=== PATIENT | female | born 1960 | race Caucasian/White ===

== ENCOUNTER 2016-04-02 17:43 | Emergency (ER) | payer MEDICARE, MEDICAID ==
[~2016-04-02] VITALS: Ht 157.5 cm; Wt 90.7 kg
[2016-04-02 18:14] VITALS: BP 149/85
--- NOTE | 2016-04-02 18:51 | PHYS DOC ---
Past Medical History Past Medical History: Depression, Hypertension, Stroke Additional Past Medical Histor: BRAIN ANEURYSM Past Surgical History: Cholecystectomy, Tonsillectomy Additional Information: LESS THAN A PACK A DAY Alcohol Use: None Drug Use: None Adult General Chief Complaint Chief Complaint: ANKLE PROBLEM HPI HPI Patient is a 55 year old female with history of hypertension stroke and depression who presents today with mild right medial ankle pain that began today after she stepped on a step and fell. Patient denies any loss of consciousness. Review of Systems Review of Systems Constitutional: Denies fever or chills [] Musculoskeletal: Left medial ankle pain Integument: Denies rash or skin lesions [] Neurologic: Denies headache, focal weakness or sensory changes [] Endocrine: Denies polyuria or polydipsia [] Allergies Allergies Allergies Coded Allergies Type Severity Reaction Last Updated Verified Penicillins Allergy Intermediate 04/02/16 Yes codeine Allergy Intermediate Itching 04/02/16 Yes Physical Exam Physical Exam Constitutional: Well developed, well nourished, no acute distress, non-toxic appearance. [] Skin: Warm, dry, no erythema, no rash. [] Back: No tenderness, no CVA tenderness. [] Extremities: Left ankle with small amount of soft tissue swelling on the lateral aspect, slight tenderness on palpation of the medial aspect of the ankle. Full range of motion to the right ankle. Patient able to flex and extend the right foot with no difficulties. +2 right pedal pulse. Cap refill less than 2 seconds the right lower extremity. Sensation intact to the right upper extremity. Neurologic: Alert and oriented X 3, normal motor function, normal sensory function, no focal deficits noted. [] Psychologic: Affect normal, judgement normal, mood normal. [] Current Patient Data Vital Signs Vital Signs Date Time Temp Pulse Resp B/P Pulse Ox O2 Delivery O2 Flow Rate FiO2 04/02/16 18:14 99.6 111 20 97 Room Air 99.6 EKG EKG [] Radiology/Procedures Radiology/Procedures [] Course & Med Decision Making Course & Med Decision Making Pertinent Labs and Imaging studies reviewed. (See chart for details) Patient is in the ED with right ankle pain after falling on it. Right ankle x- rays interpreted by Dr. Serrano are negative for any acute findings. Air cast applied to the right ankle by the ED RN, neurovascular exam done by me post-air cast application is normal, ice elevation encouraged. [id number] pain relievers. Follow-up with ortho in one week. Dragon Disclaimer Dragon Disclaimer This electronic medical record was generated, in whole or in part, using a voice recognition dictation system. Departure Departure Impression: Primary Impression: Ankle sprain Additional Impression: Fall down steps Disposition: 01 HOME, SELF-CARE Condition: STABLE Referrals: NO PCP (PCP) ОЛЕГ LOVELACE MD Follow-up with him in one week Patient Instructions: Ankle Sprain Additional Instructions: You were seen for right ankle sprain. Keep it iced and elevated, you can put weight on it as tolerated. Follow-up with orthopedic doctor provided in one week if pain continues. Problem Qualifiers Primary Impression: Ankle sprain Encounter type: initial encounter Involved ligament of ankle: unspecified ligament Laterality: right Qualified Code: S93.401A - Sprain of unspecified ligament of right ankle, initial encounter Additional Impression: Fall down steps Encounter type: initial encounter Qualified Code: W10.8XXA - Fall (on) (from ) other stairs and steps, initial encounter ISAAC DANIELS APRN Apr 02, 2016 18:51
--- NOTE | 2016-04-03 08:08 | RAD ---
Right ankle, 3 views, 04/02/2016: History: Fall, pain There is a small well-defined calcific density at the tip of the medial malleolus. Its margins are sclerotic suggesting an old nonunited fracture. No acute fracture or dislocation is identified. There is mild subcutaneous edema about the ankle. IMPRESSION: No acute bony abnormality is detected.
== END 2016-04-02 19:13 | disposition home or self-care (01) ==
LOC: ER 17:43
DX: S93.401A Sprain of unspecified ligament of right ankle, initial encounter (principal); F32.9 Major depressive disorder, single episode, unspecified; I10 Essential (primary) hypertension; I67.1 Cerebral aneurysm, nonruptured; F17.210 Nicotine dependence, cigarettes, uncomplicated; Z88.0 Allergy status to penicillin; Z88.5 Allergy status to narcotic agent; Z86.73 Personal history of transient ischemic attack (TIA), and cerebral infarction without residual deficits; W10.9XXA Fall (on) (from) unspecified stairs and steps, initial encounter; Y93.89 Activity, other specified; Y92.89 Other specified places as the place of occurrence of the external cause; Y99.8 Other external cause status
CPT/HCPCS: 73610; 99284; L4350